=== PATIENT | female | born 1950 | race Caucasian/White ===

== ENCOUNTER → 2017-06-14 | Outpatient (CLI) | payer OTHER, MEDICARE | LOC: CIMAGING 09:07 | PROVIDERS: ATTEND Family Medicine | DX: Z12.31 Encounter for screening mammogram for malignant neoplasm of breast (principal); Z80.3 Family history of malignant neoplasm of breast ==

== ENCOUNTER → 2017-07-07 | Outpatient (CLI) | payer OTHER, MEDICARE | LOC: BHCLAF 11:00 | PROVIDERS: ATTEND Internal Medicine Cardiovascular Disease | DX: R07.9 Chest pain, unspecified (principal) | CPT/HCPCS: 93005-PO ==

== ENCOUNTER → 2017-07-12 | Outpatient (CLI) | payer OTHER, MEDICARE | LOC: BHFA 10:30 | PROVIDERS: ATTEND Internal Medicine Cardiovascular Disease | DX: R07.9 Chest pain, unspecified (principal) ==

== ENCOUNTER → 2017-08-11 | Outpatient (CLI) | payer OTHER, MEDICARE | LOC: BHLMT 13:00 | PROVIDERS: ATTEND Internal Medicine Cardiovascular Disease | DX: R07.9 Chest pain, unspecified (principal); R94.39 Abnormal result of other cardiovascular function study | CPT/HCPCS: 78452; 93017; A9500 ==

== ENCOUNTER 2017-10-07 16:58 | Emergency (ER) | payer OTHER, MEDICARE ==
[2017-10-07] MEDS ORDERED: HYDROCODONE/APAP 5/325 TAB PO ONE (18:04)
--- NOTE | 2017-10-07 18:13 | EDPHY ---
H & P Time Seen by Provider: 10/07/17 17:02 HPI/ROS: 66-year-old female presents complaining of severe right ankle pain and swelling after missing a step while walking down the stairs. She also complains of mild right knee pain. Review of systems As per HPI General no fever no chills no weakness HEENT no eye pain no eye discharge. No eye redness, no sore throat Respiratory no cough, no shortness of breath Cardiac no chest pain, no peripheral edema GI no abdominal pain, no diarrhea, no constipation, no nausea, no vomiting no flank pain, no hematuria, no dysuria Musculoskeletal no myalgias, positive joint pain Heme no easy bruising, no easy bleeding Endo no polyuria, no polydipsia Skin no rashes, no pruritus Neuro no syncope, no dizziness, no headaches Psych is no suicidal ideation, no homicidal ideation Past Medical/Surgical History: Inflammatory polyneuropathy Iron deficiency anemia Social History: Denies alcohol or drug use Smoking Status: Never smoked Physical Exam: 66-year-old female alert and oriented moderate distress secondary to ankle pain Vital signs stable, afebrile Alert and oriented in no acute distress nontoxic appearance, afebrile Atraumatic normocephalic Neck no JVD Lungs clear to auscultation, no respiratory distress Heart regular rate and rhythm Extremities Right lower extremity-right knee-no swelling positive tenderness over patellar tendon, no suprapatellar tenderness No ecchymosis no erythema no obvious effusion, negative anterior posterior drawer Right ankle-diffusely swollen diffusely tender, good dorsalis pedis, good capillary refill Constitutional: Initial Vital Signs Temperature (C) 36.9 C 10/07/17 17:01 Heart Rate 63 10/07/17 17:01 Respiratory Rate 18 10/07/17 17:01 Blood Pressure 152/67 H 10/07/17 17:01 O2 Sat (%) 97 10/07/17 17:01 O2 Delivery Mode Room Air Allergies/Adverse Reactions: polymyxin B [Polymyxin B] Allergy (Verified 10/07/17 17:00) Home Medications: Medication Instructions Recorded Ativan 10/07/17 Gabapentin 10/07/17 Hydrocodone/Acetaminophen [[place] 1 - 2 tab PO Q6H PRN #20 tab 10/07/17 5/325 (*)] Lexapro 10/07/17 Pramipexole Dihydrochloride 10/07/17 Medical Decision Making - Diagnostics Imaging Results: Imaging Impressions Ankle X-Ray 10/07/17 16:59 Impression: Trimalleolar fracture with an unstable ankle mortise. 2. Right Knee, 2 views History: Pain post fall today Findings: The knee is normally aligned. There is no knee joint effusion. There is possibly a posteriorly and superiorly displaced fracture fragment of a distal quadriceps tendon spur, that one would expect to have its origin off the anterior superior corner of the patella. Impression: Possible quadriceps tendon avulsion. Knee X-Ray 10/07/17 17:04 Impression: Trimalleolar fracture with an unstable ankle mortise. 2. Right Knee, 2 views History: Pain post fall today Findings: The knee is normally aligned. There is no knee joint effusion. There is possibly a posteriorly and superiorly displaced fracture fragment of a distal quadriceps tendon spur, that one would expect to have its origin off the anterior superior corner of the patella. Impression: Possible quadriceps tendon avulsion. ED Course/Re-evaluation: Patient seen and evaluated for right ankle right knee pain X-ray Trimalleolar fracture of right ankle Right knee no obvious fracture Patient given 1 dose of hydrocodone in the emergency department Impression Trimalleolar fracture right ankle Plan I contacted Dr. Cooper, who recommended immobilization, nonweightbearing and to call his office on Tuesday for follow-up this week for probable surgery. Prescription for hydrocodone/APAP #20 Differential Diagnosis: Differential diagnosis considered but not limited to and in no particular order: Ankle sprain, knee sprain, ankle fracture, trimalleolar fracture, bimalleolar fracture, malleolar fracture, Campos fracture, proximal fibular fracture - Data Points Medications Given: Discontinued Medications Hydrocodone Bitart/Acetaminophen ([place] 5/325) 2 tab PO EDNOW ONE Stop: 10/07/17 18:05 Last Admin: 10/07/17 18:09 Dose: 2 tab Hydrocodone Bitart/Acetaminophen ([place] 5/325mg Prepack#6) 1 btl TAKEHOME EDNOW ONE Stop: 10/07/17 18:18 Last Admin: 10/07/17 18:33 Dose: 1 btl Departure - Departure Disposition: Home, Routine, Self-Care Clinical Impression: Trimalleolar fracture of right ankle, Right knee sprain Condition: Good Instructions: Hydrocodone/Acetaminophen (By mouth), Ankle Fracture (ED), Knee Sprain (ED), Crutch Instructions (ED), ORIF of an Ankle Fracture (DC) Referrals: Flori Stiles MD [Primary Care Provider] - As per Instructions Champ Cooper MD [Medical Doctor] - As per Instructions Prescriptions: Hydrocodone/Acetaminophen [[place] 5/325 (*)] 1 - 2 tab PO Q6H PRN #20 tab PRN Reason: Pain, Moderate
[2017-10-07] MEDS ORDERED: HYDROCOD/APAP 5/325 PREPACK#6 BTL TAKEHOME ONE (18:17)
[2017-10-07 18:37] VITALS: BP 155/87
== END 2017-10-07 18:55 | disposition home or self-care (01) ==
LOC: CED 16:58
DX: S82.851A Displaced trimalleolar fracture of right lower leg, initial encounter for closed fracture (principal); S83.91XA Sprain of unspecified site of right knee, initial encounter; W10.8XXA Fall (on) (from) other stairs and steps, initial encounter; Y99.8 Other external cause status; Y93.01 Activity, walking, marching and hiking
CPT/HCPCS: 73560-PO; 73610-PO

== ENCOUNTER 2017-10-17 08:43 | Day surgery (SDC) | payer OTHER, MEDICARE ==
[2017-10-17] MEDS ORDERED: LR 1,000 ML IV SCH (08:57)
[2017-10-17] MEDS ORDERED: ceFAZolin 2 GM/SWFI 2 GM/20 ML SYR IVP ONE (08:57)
[2017-10-17] MEDS ORDERED: LIDOCAINE 1% 2 ML INJ ID PRN (08:58)
[2017-10-17] MEDS ORDERED: LR 1,000 ML IV ONE (08:58)
[2017-10-17] MEDS ORDERED: BUPIVACAINE 0.5% 30 ML SDV ONE ×2 (09:02→09:57)
--- NOTE | 2017-10-17 09:08 | PDANEPAE ---
ANE History of Present Illness traumatic ankle fx here for ORIF ANE Past Medical History - Cardiovascular History Hx Hypertension: No Hx Arrhythmias: No Hx Chest Pain: No Hx Coronary Artery / Peripheral Vascular Disease: No Hx CHF / Valvular Disease: No Hx Palpitations: No - Pulmonary History Hx COPD: No Hx Asthma/Reactive Airway Disease: No Hx Recent Upper Respiratory Infection: No Hx Oxygen in Use at Home: Yes Hx Sleep Apnea: Yes Sleep Apnea Screening Result - Last Documented: Positive Pulmonary History Comment: EDOUARD USES C-PAP INSTRUCTED TO BRING DOS - Neurologic History Hx Cerebrovascular Accident: No Hx Seizures: No Hx Dementia: No - Endocrine History Hx Diabetes: No - Renal History Hx Renal Disorders: No - Liver History Hx Hepatic Disorders: No - Neurological & Psychiatric Hx Hx Neurological and Psychiatric Disorders: Yes Neurological / Psychiatric History Comment: ANXIETY - Cancer History Hx Cancer: Yes Cancer History Comment: SKIN. UTERINE - Congenital Disorder History Hx Congenital Disorders: No - GI History Hx Gastrointestinal Disorders: No - Other Health History Other Health History: ANEMIA. INSOMNIA - Chronic Pain History Chronic Pain: No - Surgical History Prior Surgeries: HYSTERECTOMY/BSO 2011. RT KNEE SCOPE. RT SHLDR SCOPE ANE Review of Systems Review of Systems: - Exercise capacity METS (RN): 4 METS ANE Patient History - Allergies Allergies/Adverse Reactions: polymyxin B [Polymyxin B] Allergy (Verified 10/07/17 17:00) - Home Medications Home Medications: Gabapentin HS 10/07/17 [Last Taken Unknown] Lexapro DAILY06 10/07/17 [Last Taken Unknown] Pramipexole Dihydrochloride HS 10/07/17 [Last Taken Unknown] Feosol DAILY 10/13/17 [Last Taken Unknown] - NPO status NPO Status: no food or drink >8 hours - Anes Hx Anes Hx: no prior problems - Smoking Hx Smoking Status: Never smoked - Alcohol Use Alcohol Use: None - Family Anes Hx Family Anes Hx: none ANE Labs/Vital Signs - Vital Signs Height: 162.56 cm Weight: 77.111 kg ANE Physical Exam - Airway Neck exam: FROM Mallampati Score: Class 2 Mouth exam: normal dental/mouth exam - Pulmonary Pulmonary: no respiratory distress, clear to auscultation - Cardiovascular Cardiovascular: regular rate and rhythym, no murmur, rub, or gallop - ASA Status ASA Status: II ANE Anesthesia Plan Anesthesia Plan: GA w LMA [facility] Anesthesia: adductor canal FNB, popliteal SNB
[2017-10-17] MEDS ORDERED: fentaNYL 100 MCG/2 ML INJ ONE (09:18)
[2017-10-17] MEDS ORDERED: PROPOFOL 200 MG/20 ML VIAL ONE (09:18)
[2017-10-17] MEDS ORDERED: LIDOCAINE 2% 100 MG/5 ML SYR ONE (09:19)
[2017-10-17] MEDS ORDERED: clonIDINE 1 MG/10 ML VIAL EP ONE (09:21)
[2017-10-17] MEDS ORDERED: ROPIVACAINE HCL 150 MG/30 ML INJ ONE ×2 (09:21)
--- NOTE | 2017-10-17 09:48 | PDHPUP ---
History & Physical Update H&P update statement: This history and physical update is based on an assessment of the patient which was completed after admission or registration (within 24 hours), but prior to the surgery/procedure. H&P update: H&P reviewed & patient examined
[2017-10-17] MEDS ORDERED: MIDAZOLAM 2 MG/2 ML VIAL ONE (09:59)
[2017-10-17] MEDS ORDERED: MIDAZOLAM 2 MG/2 ML VIAL IVP ONE (10:02)
[2017-10-17] MEDS ORDERED: ONDANSETRON 4 MG/2 ML VIAL ONE (10:17)
[2017-10-17] MEDS ORDERED: DEXAMETHASONE 4 MG/ML VIAL ONE (10:17)
[2017-10-17] MEDS ORDERED: ONDANSETRON DISINTEGRATING 4 MG TAB PO PRN (12:13)
[2017-10-17] MEDS ORDERED: OXYCODONE/APAP 5/325 TAB PO PRN (12:13)
[2017-10-17] MEDS ORDERED: ONDANSETRON 4 MG/2 ML VIAL IVP PRN (12:13)
[2017-10-17] MEDS ORDERED: oxyCODONE IR 5 MG TAB PO PRN (12:14)
[2017-10-17] MEDS ORDERED: ACETAMINOPHEN 500 MG TAB PO PRN (12:14)
[2017-10-17] MEDS ORDERED: NALOXONE HCL 0.4 MG/ML INJ IVP PRN (12:14)
[2017-10-17] MEDS ORDERED: fentaNYL 100 MCG/2 ML INJ IVP PRN (12:14)
--- NOTE | 2017-10-17 12:14 | POSTANESTH ---
Post Anesthetic Evaluation Cardiovascular Status: Normal, Stable, Similar to Pre-Op Cond Respiratory Status: Normal, Stable, Similar to Pre-op Cond. Level of Consciousness/Mental Status: Can Participate in Eval, Alert and Oriented Pain Control: Adequate, Prn Tx Ordered Nausea/Vomiting Control: Adequate, Prn Tx Ordered Complications Possibly Related to Anesthesia: None Noted
[2017-10-17 13:45] VITALS: BP 113/58
--- NOTE | 2017-10-19 06:28 | GOP ---
[f rep st] OPERATIVE REPORT DATE OF OPERATION: 10/17/2017 SURGEON: David Garcia DPM CAPTAIN WAITER/WAITRESS: None. ANESTHESIA: General. PREOPERATIVE DIAGNOSIS: Trimalleolar fracture of the right ankle. POSTOPERATIVE DIAGNOSIS: Trimalleolar fracture of the right ankle. PROCEDURE PERFORMED: Open reduction, internal fixation right ankle trimalleolar fracture. FINDINGS: SPECIMENS: None. ESTIMATED BLOOD LOSS: Scant. INDICATIONS: The patient is a 66-year-old woman who presented to my office after being triaged throu gh the [facility] for a right ankle injury after missing a step. She sustained a displaced trimalleolar ankle fracture on 10/07/2017. 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 The patient understands the risks, benefits, and alterna tives to the procedures discussed and wishes to proceed. DESCRIPTION OF PROCEDURE: Under mild sedation, the patient was brought into the operating room, plac ed on the operating table in supine position. Following the induction of general anesthesia, as well as infiltration of 2 g of IV Ancef. A nonsterile pneumatic thigh tourniquet was placed about the pa tient's well-padded right thigh. An ipsilateral hip bump was also placed to decrease external rotati on. At this time, the foot was then scrubbed, prepped, and draped in usual aseptic manner. An Esmar ch bandage was utilized to exsanguinate the patient's right lower extremity and the tourniquet was in flated to 250 mmHg. Attention was then directed to the lateral aspect of the patient's right fibula where a 7 cm linear l ongitudinal incision was made on the lateral aspect and in line with the longitudinal axis of the pat ient's left fibula. The incision was deepened via sharp and blunt dissection, care being taken to id entify and retract all vital and neurovascular structures. All bleeders were ligated and cauterized as necessary. Periosteal tissues were reflected anterior and posteriorly thus exposing the entire di stal portion of the patient's right lateral malleolus. The fracture line was immediately identified. Any remaining hematoma was evacuated with both a curette as well as lavage. The fracture was reduc ed and the fibula was brought back out to length. This was held in place with a lobster claw bone re duction forceps. At this time, an interfragmentary screw was placed across the fracture site measuri ng 2.7 x 20 mm. Using standard AO principles and techniques, a screw was placed and validated noting excellent compression. At this time, the lateral contoured fibular plate was placed and held in martine ce with a combination of locking and cortical screws. This alignment and fixation was checked under intraoperative fluoroscopy. The wound was flushed with copious amounts of sterile normal saline. Th e wound was closed in layers with 2-0 Vicryl closing the subperiosteal layer, 3-0 Monocryl closing th e subcutaneous layer, and the skin was closed with a running baseball-type suture of 4-0 Prolene. Attention was then directed to the area overlying the medial malleolus. The ipsilateral hip bump was removed to get a better visualization of the medial aspect of the patient's right ankle. At this ti me, a 3 cm linear longitudinal incision was made overlying the anterior colliculus of the medial mall eolus. The incision was deepened via sharp and blunt dissection, care being taken to identify and re tract all vital neural and vascular structures. All bleeders were ligated and cauterized as necessar y. Periosteal incision was made in line with the skin incision. The soft tissue structures were ref lected anteriorly and posteriorly thus exposing the medial malleolar fracture. This was reduced manu ally and held in place with 2 threaded K-wires used for the cannulated screw system. Reduction was n oted under intraoperative fluoroscopy to be excellent and two 50 mm x 4.0 mm screws were placed acros s the fracture site using standard AO principles and techniques. Two K-wires were removed from the s ite and passed from the operative field. The wound was flushed with copious amounts of sterile karon l saline. Periosteal structures were closed with a 2-0 Vicryl, 3-0 Monocryl was used to close subcut aneous layer. The skin was closed with a running baseball-type suture of 4-0 Prolene. Final intraop erative fluoroscopic images were taken. It should be noted that the posterior malleolar fracture was noted to be in the proper alignment and I chose not to formally fixate this as it was completely ret urned to its anatomic position and was well reduced. The wounds were dressed with Xeroform and a emilie rile compressive dressing consisting of 4 x 4s and Rafiq. A light Coban wrap was also applied. The tourniquet was dropped and a prompt hyperemic response was noted to all digits of the right foot. A posterior splint was then placed on the patient's right lower extremity to hold the patient's ankle a t 90 degrees and to allow for any postoperative edema. The patient tolerated the procedure and anest hesia well. She was transferred to the recovery room with vital signs stable and vascular status int act to all digits of the right foot. Following a period of postoperative monitoring, the patient lucrecia l be discharged home on the following written and oral postoperative instructions: 1. Keep dressing clean, dry, and intact. 2. Ice and elevate as instructed. 3. Nonweightbearing at all times with crutches and/or knee scooter. 4. All followup questions and concerns should be directed toward [facility] at [phone]. HEMOSTASIS: Pneumatic thigh tourniquet about the right thigh at 250 mmHg for 81 minute. MATERIALS: Synthes contoured fibular plate as well as a 2.7 x 20 mm fully threaded cortical screw an d 2 partially-threaded 4.0 x 15 mm long thread cannulated screws. INJECTABLES: None, other than the sciatic and femoral nerve block done by Anesthesia. COMPLICATIONS: None. /[id number]/MODL
== END 2017-10-17 13:55 | disposition home or self-care (01) ==
LOC: FSGY 08:43
PROVIDERS: ATTEND Podiatrist Foot & Ankle Surgery
DX: S82.851A Displaced trimalleolar fracture of right lower leg, initial encounter for closed fracture (principal); W10.9XXA Fall (on) (from) unspecified stairs and steps, initial encounter
CPT/HCPCS: 27822; C1769; C1713; J0690; J0735; J1100; J2001; J2250; J2405; J2704; J2795; J3010

== ENCOUNTER → 2017-11-09 | Outpatient (CLI) | payer OTHER, MEDICARE | LOC: BMCIMAGING 09:44 | PROVIDERS: ATTEND Podiatrist Foot & Ankle Surgery | DX: S82.841D Displaced bimalleolar fracture of right lower leg, subsequent encounter for closed fracture with routine healing (principal) ==

== ENCOUNTER → 2017-12-09 | Outpatient (CLI) | payer OTHER, MEDICARE | LOC: BMCIMAGING 10:33 | PROVIDERS: ATTEND Podiatrist Foot & Ankle Surgery | DX: S82.831D Other fracture of upper and lower end of right fibula, subsequent encounter for closed fracture with routine healing (principal); S82.51XD Displaced fracture of medial malleolus of right tibia, subsequent encounter for closed fracture with routine healing; Z96.7 Presence of other bone and tendon implants ==